=== PATIENT | female | born 1945 | race Caucasian/White ===

== ENCOUNTER 2017-01-03 21:17 | Emergency (ER) | payer MEDICARE, MEDICAID ==
--- NOTE | 2017-01-04 19:22 | ER ---
ADMIT: 01/03/2017 RM/LOC: ER [facility] MR#: [id number] [address] [id number] [facility] [address] [place] [id number] Emergency Room Report SEX: F AGE: 71 : 1945 DATE: 01/03/2017 HISTORY OF PRESENT ILLNESS: The patient is a 71-year-old female with a past medical history of 2 vascular stents and Schatzki ring and esophageal spasm and hypothyroidism, came to the ER with chief complaint of chest pain, which started 20 minutes ago while the patient was resting. The pain was pressure like, and the patient had such pain before, the patient denies any diaphoresis, and the patient also received aspirin p.o. and also one dose of sublingual nitroglycerin in the ambulance and per patient pain decreased substantially after receiving the nitroglycerin. In the ER, the patient has stable vitals, in very mild distress, the patient stated there is very mild residual of the pain, but most of it is resolved, EKG did not show any acute ischemic changes or arrhythmia. Cardiac enzymes are negative. Chest x-ray is negative for any acute changes. The head and neck exam is normal. Chest is clear bilaterally. Normal heart sounds without any murmurs or gallops. Abdomen is soft, without any pulsating mass. The rest of the physical exam is noncontributory and normal. The patient has no swelling or tenderness in the lower extremities. The patient had normal peripheral pulses. Considering the resolution of the pain with nitroglycerin, Internal Medicine was consulted for admission to rule out acute coronary syndrome, the patient did not want to get admitted, all the risks and benefit was discussed with the patient and even the risk of acute coronary syndrome and even was discussed with the patient, but she preferred to leave the hospital and stated that she knows the risks, but she believes it is not the heart problem and she wants to go home and take care of her children and dogs and herself. The patient was informed that she is more than welcome to come back whenever she feels that it is needed or if there is any concerns, and she acknowledged she understood it and she agreed with it. The patient left the hospital against medical advice after discussing the case, and the risk and benefit with a physician and also with the nurses. Beka Cohn MD/ rosey JOB #: [id number] CC: Beka Cohn MD, Attending Physician Jung Cerda MD, Family Physician
== END 2017-01-03 23:30 | disposition still patient (30) ==
LOC: ER 21:17
DX: R07.9 Chest pain, unspecified (principal); I10 Essential (primary) hypertension; F32.9 Major depressive disorder, single episode, unspecified; F17.210 Nicotine dependence, cigarettes, uncomplicated; Z79.82 Long term (current) use of aspirin; Z79.899 Other long term (current) drug therapy